=== PATIENT | female | born 1990 | race Caucasian/White ===

== ENCOUNTER 2017-07-25 07:43 | Emergency (ER) | payer SELFPAY | END 2017-07-25 08:50 | disposition home or self-care (01) | LOC: ERS 07:43 | DX: M27.3 Alveolitis of jaws (principal); F17.210 Nicotine dependence, cigarettes, uncomplicated | CPT/HCPCS: 99406 ==

== ENCOUNTER 2017-08-12 11:42 | Emergency (ER) | payer SELFPAY | END 2017-08-12 13:32 | disposition home or self-care (01) | LOC: ERS 11:42 | DX: L72.3 Sebaceous cyst (principal); F17.210 Nicotine dependence, cigarettes, uncomplicated | CPT/HCPCS: 99406 ==

== ENCOUNTER 2020-03-04 10:34 | Emergency (ER) | payer OTHER, SELFPAY ==
[2020-03-05 16:07] LABS: SARS-CoV-2 MS2 Positive; SARS-CoV-2 N Gene Negative; SARS-CoV-2 S Gene Negative; SARS-CoV-2 orf1ab Negative
== END 2020-03-04 10:54 | disposition home or self-care (01) ==
LOC: ERS 10:34
DX: R43.9 Unspecified disturbances of smell and taste (principal); Z20.828 Contact with and (suspected) exposure to other viral communicable diseases; F17.210 Nicotine dependence, cigarettes, uncomplicated
CPT/HCPCS: 87635; 99283; U0003

== ENCOUNTER 2020-03-11 11:19 | Emergency (ER) | payer OTHER, SELFPAY ==
[2020-03-12 12:54] LABS: SARS-CoV-2 MS2 Positive; SARS-CoV-2 N Gene Negative; SARS-CoV-2 S Gene Negative; SARS-CoV-2 orf1ab Negative
== END 2020-03-11 11:50 | disposition home or self-care (01) ==
LOC: ERS 11:19
DX: R51 Headache (principal); R50.9 Fever, unspecified; F32.9 Major depressive disorder, single episode, unspecified; F17.210 Nicotine dependence, cigarettes, uncomplicated; Z20.828 Contact with and (suspected) exposure to other viral communicable diseases
CPT/HCPCS: 87635; 99284; U0003

== ENCOUNTER 2022-01-09 06:52 | Emergency (ER) | payer OTHER ==
[2022-01-09] MEDS ORDERED: Proparacaine 0.5% Opth 15 ML BOT ONE (07:18)
[2022-01-09] MEDS ORDERED: Fluorescein Opthalmic Strip ONE (07:18)
== END 2022-01-09 07:36 | disposition home or self-care (01) ==
LOC: ERS 06:52
DX: Z77.098 Contact with and (suspected) exposure to other hazardous, chiefly nonmedicinal, chemicals (principal); F17.210 Nicotine dependence, cigarettes, uncomplicated
CPT/HCPCS: 99283